=== PATIENT | male | born 1990 | race African-American/Black ===

== ENCOUNTER 2016-10-31 00:02 | Emergency (ER) | payer MEDICAID | END 2016-10-31 00:10 | disposition left against medical advice (07) | LOC: ER 00:07 | DX: Z53.21 Procedure and treatment not carried out due to patient leaving prior to being seen by health care provider (principal) ==

== ENCOUNTER 2017-11-11 21:12 | Emergency (ER) | payer MEDICAID ==
[~2017-11-11] VITALS: Ht 170.2 cm; Wt 65.8 kg
[2017-11-11 21:43] VITALS: BP 124/72
[2017-11-11] MEDS ORDERED: IBUPROFEN 400 MG TABLET ONE (22:09)
[2017-11-11] MEDS ORDERED: IBUPROFEN 400 MG TABLET PO ONE (22:30)
== END 2017-11-11 23:38 | disposition home or self-care (01) ==
LOC: ER 21:15
DX: M54.6 Pain in thoracic spine (principal); M79.1 Myalgia
CPT/HCPCS: 71045-TC; A4606; Z7610

== ENCOUNTER 2020-11-02 19:30 | Emergency (ER) | payer MEDICAID, OTHER ==
[~2020-11-02] VITALS: Ht 175.3 cm; Wt 71.7 kg
[2020-11-02 19:30] VITALS: BP 115/79
[2020-11-02] MEDS ORDERED: IBUP-1955 PO (20:34)
== END 2020-11-02 21:07 | disposition home or self-care (01) ==
LOC: ER 19:35
DX: M25.571 Pain in right ankle and joints of right foot (principal); W01.0XXA Fall on same level from slipping, tripping and stumbling without subsequent striking against object, initial encounter; Y93.01 Activity, walking, marching and hiking; Y92.89 Other specified places as the place of occurrence of the external cause; Y99.8 Other external cause status
CPT/HCPCS: 73610-TC